=== PATIENT | female | born 1950 ===

== ENCOUNTER 2017-07-11 20:08 | Emergency (ER) | payer MEDICARE, OTHER ==
[~2017-07-11] VITALS: Ht 170.2 cm; Wt 61.4 kg
[2017-07-11 20:12] VITALS: BP 11/77
== END 2017-07-11 20:58 | disposition home or self-care (01) ==
LOC: ER 20:09
DX: G89.29 Other chronic pain (principal); M25.519 Pain in unspecified shoulder
CPT/HCPCS: 99284